=== PATIENT | male | born 2000 | race American Indian/Alaskan Native ===

== ENCOUNTER 2021-02-02 22:58 | Emergency (ER) | payer OTHER ==
[2021-02-02 23:23] VITALS: BP 126/75
--- NOTE | 2021-02-03 01:32 | Emergency Department Report ---
ED General Adult HPI - General Chief complaint: Sore Throat Stated complaint: SWOLLEN TONSILS Source: patient Mode of arrival: Ambulatory Limitations: No Limitations - History of Present Illness Initial comments: Patient is a 20-year-old -Irish male with no past medical history who presents to the ED with complaint of acute onset persistent severe sore throat with dysphagia, diffuse body aches and pains fever and chills, and headache for the last 2 days. Patient states that he has not been able to eat anything because of worsening sore throat with dysphagia. Patient denies nasal and sinus congestion, cough, dizziness, headache, chest pain or shortness of breath, nausea and vomiting or diarrhea, abdominal pain, and back pain. MD Complaint: Sore throat, dysphagia, fever, headache and body pain. -: Sudden, days(s) (2) Location: mouth Radiation: non-radiation Severity scale (0 -10): 7 Quality: aching, sharp Consistency: constant Improves with: none Worsens with: eating Associated Symptoms: denies other symptoms, fever/chills, headaches, loss of appetite, malaise. denies: confusion, chest pain, cough, diaphoresis, nausea/vomiting, rash, seizure, shortness of breath, syncope, weakness Treatments Prior to Arrival: none - Related Data Previous Rx's Medication Instructions Recorded Last Taken Type Ibuprofen [Motrin] 800 mg PO Q8HR PRN #30 tablet 02/03/21 Unknown Rx Lidocaine Viscous 2% 10 ml PO Q6H PRN #120 ml 02/03/21 Unknown Rx Penicillin V Potassium 500 mg PO Q6H #40 tablet 02/03/21 Unknown Rx predniSONE [Deltasone] 40 mg PO QDAY #10 tab 02/03/21 Unknown Rx Allergies Allergy/AdvReac Type Severity Reaction Status Date / Time No Known Allergies Allergy Verified 02/03/21 01:28 ED Review of Systems ROS: Stated complaint: SWOLLEN TONSILS Other details as noted in HPI Constitutional: chills, fever, malaise Eyes: denies: eye pain, eye discharge, vision change ENT: throat pain. denies: ear pain Respiratory: denies: cough, shortness of breath, wheezing Cardiovascular: denies: chest pain, palpitations Endocrine: no symptoms reported Gastrointestinal: denies: abdominal pain, nausea, diarrhea Genitourinary: denies: urgency, dysuria Musculoskeletal: denies: back pain, joint swelling, arthralgia Skin: denies: rash, lesions Neurological: headache. denies: weakness, paresthesias Psychiatric: denies: anxiety, depression Hematological/Lymphatic: denies: easy bleeding, easy bruising ED Past Medical Hx - Past Medical History Previous Medical History?: No - Surgical History Past Surgical History?: No - Medications Home Medications: Home Medications Medication Instructions Recorded Confirmed Last Taken Type Ibuprofen [Motrin] 800 mg PO Q8HR PRN #30 tablet 02/03/21 Unknown Rx Lidocaine Viscous 2% 10 ml PO Q6H PRN #120 ml 02/03/21 Unknown Rx Penicillin V Potassium 500 mg PO Q6H #40 tablet 02/03/21 Unknown Rx predniSONE [Deltasone] 40 mg PO QDAY #10 tab 02/03/21 Unknown Rx ED Physical Exam - General Limitations: No Limitations General appearance: alert, in no apparent distress - Head Head exam: Present: atraumatic, normocephalic, normal inspection - Eye Eye exam: Present: normal appearance, PERRL, EOMI Pupils: Present: normal accommodation - ENT ENT exam: Present: mucous membranes moist, TM's normal bilaterally, normal external ear exam, other (Erythematous oropharynx with thick white exudate) - Neck Neck exam: Present: normal inspection, full ROM, lymphadenopathy (Palpable right anterior cervical lymphadenopathy) - Respiratory Respiratory exam: Present: normal lung sounds bilaterally. Absent: respiratory distress, wheezes, rales, chest wall tenderness, accessory muscle use, decreased breath sounds - Cardiovascular Cardiovascular Exam: Present: regular rate, normal rhythm, normal heart sounds. Absent: systolic murmur, diastolic murmur, rubs, gallop - GI/Abdominal GI/Abdominal exam: Present: soft, normal bowel sounds. Absent: tenderness, guarding, rebound, hyperactive bowel sounds, hypoactive bowel sounds - Extremities Exam Extremities exam: Present: normal inspection, full ROM, normal capillary refill - Back Exam Back exam: Present: normal inspection, full ROM. Absent: CVA tenderness (L), muscle spasm, paraspinal tenderness - Neurological Exam Neurological exam: Present: alert, oriented X3, CN II-XII intact, normal gait, reflexes normal - Psychiatric Psychiatric exam: Present: normal affect, normal mood - Skin Skin exam: Present: warm, dry, intact, normal color. Absent: rash ED Course Vital Signs 02/02/21 23:21 Temperature 101.5 F H Pulse Rate 91 H Respiratory 18 Rate Blood Pressure 126/75 O2 Sat by Pulse 95 Oximetry ED Medical Decision Making - Medical Decision Making This is a 20-year-old -Irish male with no past medical history who presents to the ED with complaint of acute onset persistent severe sore throat with dysphagia, diffuse body aches and pains fever and chills, and headache for the last 2 days. Patient states that he has not been able to eat anything because of worsening sore throat with dysphagia. In the ED, patient is alert and oriented x3 and is not in any distress but febrile in triage. Patient was treated for pain in the ED and also given initial oral antibiotics for suspected streptococcal pharyngitis. On reevaluation, patient's pain is well controlled medications, and fever improved significantly. Patient was discharged home on medications including oral antibiotics and pain medications and advised to follow-up with his primary care physician in 7 to 10 days for reevaluation or return to the ED immediately if symptoms get worse. - Differential Diagnosis Strep pharyngitis; mononucleosis; URI; Critical care attestation.: If time is entered above; I have spent that time in minutes in the direct care of this critically ill patient, excluding procedure time. ED Disposition Clinical Impression: Acute streptococcal pharyngitis, Fever and chills Acute tonsillitis Qualifiers: Pharyngitis/tonsillitis etiology: unspecified etiology Qualified Code(s): J03.90 - Acute tonsillitis, unspecified Disposition: 01 HOME / SELF CARE / HOMELESS Is pt being admited?: No Does the pt Need Aspirin: No Condition: Stable Instructions: Tonsillitis, [id number], Strep Throat, Adult, [id number], Fever, Adult, [id number] Additional Instructions: Take medication with food, drink plenty of fluids and follow-up with your primary care physician in 7 to 10 days for reevaluation. Return to the ED immediately if symptoms get worse. Prescriptions: predniSONE [Deltasone] 40 mg PO QDAY #10 tab Lidocaine Viscous 2% 10 ml PO Q6H PRN #120 ml PRN Reason: Sore Throat Ibuprofen [Motrin] 800 mg PO Q8HR PRN #30 tablet PRN Reason: Pain and fever Penicillin V Potassium 500 mg PO Q6H #40 tablet Referrals: [facility] [Provider Group] - 7-10 days Time of Disposition: 01:32 Print Language: ICELANDIC
[2021-02-03] MEDS: IBUPROFEN 600 MG TAB PO ONE ×2 (01:39→01:42)
[2021-02-03] MEDS: ACETAMINOPHEN 500 MG TAB PO ONE ×2 (01:39→01:42)
[2021-02-03] MEDS: predniSONE 50 MG TAB PO ONE ×2 (01:39→01:42)
[2021-02-03] MEDS: AMOXICILLIN/K CLAV 875/125MG TAB PO ONE ×2 (01:40→01:42)
[2021-02-03] MEDS ORDERED: LIDOCAINE VISCOUS 2% 15 ML ORAL LIQD PO ONE (01:47)
== END 2021-02-03 03:21 | disposition home or self-care (01) ==
LOC: ED 22:58
DX: J02.0 Streptococcal pharyngitis (principal); J03.90 Acute tonsillitis, unspecified
CPT/HCPCS: 99281; J7512

== ENCOUNTER 2021-07-08 11:01 | Emergency (ER) | payer SELFPAY ==
[2021-07-08] MEDS ORDERED: EPINEPHrine/PF 1 MG/1 ML INJ ONE (11:04)
[2021-07-08] MEDS ORDERED: methylPREDNISolone Sod Succinate 125 MG/2 ML INJ IV ONE (11:10)
[2021-07-08] MEDS ORDERED: SODIUM CHLORIDE 0.9% 1000 ML 1,000 ML ONE (11:11)
[2021-07-08] MEDS ORDERED: diphenhydrAMINE 50 MG/ML VIAL IV ONE (11:11)
[2021-07-08] MEDS ORDERED: FAMOTIDINE 20 MG/2 ML INJ IV ONE (11:11)
[2021-07-08] MEDS ORDERED: EPINEPHrine/PF 1 MG/1 ML INJ IM STA (11:11)
--- NOTE | 2021-07-08 11:33 | Emergency Department Report ---
ED General Adult HPI - General Chief complaint: Allergic Reaction Stated complaint: ALLERGIC REACTION PUI?: No Time Seen by Provider: 07/08/21 11:10 Source: patient Mode of arrival: Ambulatory Limitations: No Limitations - History of Present Illness Initial comments: patient presents with complaints of itchy rash all over his body that started just [employer] in ED. Endorses eyelid swelling. Denies lip, tongue swelling, itchiness in throat, dysphagia, SOB, dizziness, fevers, chills, known sick contacts. Denies new foods, creams, soaps, detergents, meds, exposure to new or unusual plants. Just started working at a new job today and is unclear what he was exposed to. Severity scale (0 -10): 0 - Related Data Previous Rx's Medication Instructions Recorded Last Taken Type Ibuprofen [Motrin] 800 mg PO Q8HR PRN #30 tablet 02/03/21 Unknown Rx Lidocaine Viscous 2% 10 ml PO Q6H PRN #120 ml 02/03/21 Unknown Rx Penicillin V Potassium 500 mg PO Q6H #40 tablet 02/03/21 Unknown Rx predniSONE [Deltasone] 40 mg PO QDAY #10 tab 02/03/21 Unknown Rx EPINEPHrine [Epipen] 0.3 mg IJ ONCE PRN 1 Days #1 pack 07/08/21 Unknown Rx Loratadine 1 tab PO DAILY 5 Days #5 tab 07/08/21 Unknown Rx predniSONE [Deltasone] 2 tab PO QDAY 5 Days #10 tab 07/08/21 Unknown Rx Allergies Allergy/AdvReac Type Severity Reaction Status Date / Time No Known Allergies Allergy Verified 02/03/21 01:28 ED Review of Systems ROS: Stated complaint: ALLERGIC REACTION Other details as noted in HPI Comment: All other systems reviewed and negative Constitutional: denies: chills, fever ED Past Medical Hx - Past Medical History Previous Medical History?: No - Surgical History Past Surgical History?: No - Social History Smoking Status: Never Smoker Substance Use Type: None - Medications Home Medications: Home Medications Medication Instructions Recorded Confirmed Last Taken Type Ibuprofen [Motrin] 800 mg PO Q8HR PRN #30 tablet 02/03/21 Unknown Rx Lidocaine Viscous 2% 10 ml PO Q6H PRN #120 ml 02/03/21 Unknown Rx Penicillin V Potassium 500 mg PO Q6H #40 tablet 02/03/21 Unknown Rx predniSONE [Deltasone] 40 mg PO QDAY #10 tab 02/03/21 Unknown Rx EPINEPHrine [Epipen] 0.3 mg IJ ONCE PRN 1 Days #1 pack 07/08/21 Unknown Rx Loratadine 1 tab PO DAILY 5 Days #5 tab 07/08/21 Unknown Rx predniSONE [Deltasone] 2 tab PO QDAY 5 Days #10 tab 07/08/21 Unknown Rx ED Physical Exam - General Limitations: No Limitations General appearance: alert, in no apparent distress - Head Head exam: Present: atraumatic, normocephalic - Eye Eye exam: Present: PERRL, EOMI, other (eyelid edema bilaterally) - ENT ENT exam: Present: mucous membranes moist, other (no lip, tongue or posterior oropharyngeal edema) - Neck Neck exam: Present: other (supple; no JVD) - Respiratory Respiratory exam: Present: other (good air entry, nml I:EW, CTAVB, no use of LUIS MIGUEL) - Cardiovascular Cardiovascular Exam: Present: regular rate, other (no rub or gallop) - GI/Abdominal GI/Abdominal exam: Present: soft, normal bowel sounds. Absent: tenderness - Extremities Exam Extremities exam: Present: full ROM. Absent: pedal edema, calf tenderness - Back Exam Back exam: Present: full ROM. Absent: tenderness - Neurological Exam Neurological exam: Present: alert, oriented X3, CN II-XII intact, other (motor and sensory nml) - Skin Skin exam: Present: other (flesh colored plaques all over body) ED Course Vital Signs 07/08/21 07/08/21 07/08/21 11:19 11:22 14:02 Temperature 97.5 F L Pulse Rate 106 H 68 Respiratory 15 18 Rate Blood Pressure 128/82 Blood Pressure 118/78 [Left] O2 Sat by Pulse 99 99 100 Oximetry ED Medical Decision Making - Medical Decision Making Diff dz: likely 2/2 allergic reaction (urticaria with angioedema) due to unknown allergen. No signs of bronchospasm, airway compromise or anaphylactic shock. Received epi 0.3 mg IM x 1, solumedrol 125 mg IV x 1, diphenhydramine 25 mg IV x 1, pepcid 20 mg IV x 1 2 hours after meds: Lungs with good air entry, nml I:E, CTAB; rash resolved. Eyelid edema resolved. No lip, tongue or posterior oropharyngeal edema Critical care attestation.: If time is entered above; I have spent that time in minutes in the direct care of this critically ill patient, excluding procedure time. ED Disposition Clinical Impression: Urticaria Angioedema Qualifiers: Encounter type: initial encounter Qualified Code(s): T78.3XXA - Angioneurotic edema, initial encounter Disposition: HOME / SELF CARE / HOMELESS Is pt being admited?: No Does the pt Need Aspirin: No Condition: Stable Instructions: Angioedema, [id number], Hives Additional Instructions: Return to the ER if your symptoms worsen Prescriptions: predniSONE [Deltasone] 2 tab PO QDAY 5 Days #10 tab EPINEPHrine [Epipen] 0.3 mg IJ ONCE PRN 1 Days #1 pack PRN Reason: Allergic Reaction Loratadine 1 tab PO DAILY 5 Days #5 tab Referrals: PRIMARY CARE,MD [Primary Care Provider] - 3-5 Days Time of Disposition: 13:30
[2021-07-08 14:02] VITALS: BP 118/78
== END 2021-07-08 14:07 | disposition home or self-care (01) ==
LOC: ED 11:01
DX: T78.3XXA Angioneurotic edema, initial encounter (principal)
CPT/HCPCS: 96372; 96374; 96375; 99282; J0171; J1200; J2930; J3490; J7030; Q0162